=== PATIENT | female | born 1965 | race American Indian/Alaskan Native ===

== ENCOUNTER 2019-06-02 13:46 | Outpatient (CLI) | payer OTHER ==
--- NOTE | 2019-06-02 16:30 | Mammography Report ---
DIGITAL SCREENING MAMMOGRAM WITH CAD, 06/02/2019 INDICATION: Routine screening mammography. TECHNIQUE: Digital bilateral 2D mammography was obtained in the craniocaudal and mediolateral obliq ue projections. This examination was interpreted with the benefit of Computer-Aided Detection analysi s. COMPARISON: 06/30/2015 FINDINGS: Breast Density: The breasts are heterogeneously dense, which may obscure small masses. There has been some fatty involution since the last exam. Right asymmetries on the CC view are new an d require additional imaging. No architectural distortion or suspicious calcifications of the right b reast. There is no evidence of dominant mass, suspicious calcifications or architectural distortion i n the left breast. IMPRESSION: Right asymmetries requiring additional imaging. Recommend recall for right lateral and sp ot compression CC views and right breast ultrasound if needed. Follow up recommendation: Special View: Spot Category 0: Incomplete. Needs additional imaging evaluation and/or prior mammograms for comparison. A "normal" or negative report should not discourage follow up or biopsy of a clinically significant f inding. A written summary of these findings will be mailed to the patient. The patient will be entered into a mammography reporting system which will generate a reminder letter for the patient's next appointmen t at the appropriate interval. The [employer] recommends yearly mammograms starting at age 40 and continuing as l efrem as a woman is in good health. Breast MRI is recommended for women with an approximate 20-25% or greater lifetime risk of breast cancer, including women with a strong family history of breast or ova tao cancer or who have been treated for Hodgkin's disease. Signer Name: Shekhar Cervantes MD Signed: 06/02/2019 4:24 PM Workstation Name: [id number]
== END 2019-06-02 13:47 | disposition home or self-care (01) ==
LOC: SPVWC 13:46
PROVIDERS: ATTEND Obstetrics & Gynecology Gynecology
DX: Z12.31 Encounter for screening mammogram for malignant neoplasm of breast (principal)
CPT/HCPCS: 77067